=== PATIENT | male | born 1960 | race Caucasian/White ===

== ENCOUNTER 2025-09-05 09:11 | Outpatient (AMB) | payer MEDICARE, SELFPAY ==
--- NOTE | 2025-09-05 09:13 | MHC.PC.OV ---
Vital Signs 09/05/25 09:27 Height 5 ft 6.73 in Weight 179 lb BMI 28.3 BP 128/80 Blood Pressure Location Lt brachial Position Sitting Respiration 18 Pulse 85 Pulse Source Pulse Oximeter Temp 97.6 F Temp Source Temporal Artery Scan Pulse Oximetry (%) 97 Oxygen Delivery Method Room Air Intake Visit Reasons: New Patient/Establish Care Data Support Specialist Required: No Accompanied by: Spouse Allergies lisinopril Adverse Reaction (Intermediate, Verified 09/05/25 09:21) Cough metformin Adverse Reaction (Intermediate, Verified 09/05/25 09:21) Diarrhea Tobacco use date assessed: 09/05/25 Fall risk assessment: No Falls in past year Last assessed Fall Risk: 09/05/25 Dental Screening Dental Screen Date: 09/05/25 Did you have a dental visit in the last 12 months?: No Did you have a dental problem in the last 6 months where you did not have access to dental care?: Yes Was dental information given to patient?: Patient has dentist [facility] Social History Housing: House Patient Tobacco Use Status: Never used Tobacco e-Cigarette/Vaping Use: Never Used service: No Current occupational status: retired Questionnaire AUDIT C Alcohol Use Questionnaire (AUDIT-C) 1. How often do you have a drink containing alcohol?: 4 or more times a week 2. How many drinks containing alcohol do you have on a typical day when you are drinking?: 3 or 4 3. How often do you have six or more drinks on one occasion?: Never Total Score: 5 Physical exam (Primary Care) Vital Signs: Last Vital Signs Temp 97.6 F 09/05/25 09:27 Pulse 85 09/05/25 09:27 Resp 18 09/05/25 09:27 BP 128/80 09/05/25 09:27 Pulse Ox 97 09/05/25 09:27 Oxygen Delivery Method Room Air 09/05/25 09:27 BMI result Body Mass Index 28.3 Tobacco/Smoking Status: Tobacco use Status Tobacco use date assessed 09/05/25 09/05/25 09:17 Patient Tobacco Use Status Never used Tobacco 09/05/25 09:30 e-Cigarette/Vaping Use Never Used 09/05/25 09:30 Coding
[2025-09-05 09:27] VITALS: BP 128/80; PULSE 85; RESP 18; TEMP 36.4; O2SAT 97; BMI 28.3
--- NOTE | 2025-09-05 09:54 | A.OFFVIS_ITS ---
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 Laterality: unspecified laterality Mood disorder F39 Additional Codes GENNY-7 Assessment Billing - GENNY-7 Assessment Tool: GENNY-7 Assessment 09229 ([id number]) PHQ-9 - 22626 - PHQ-9 Billing: Yes ([id number]) Comment [id number]
== END 2025-09-05 10:21 | disposition home or self-care (01) ==
LOC: HO.HMCHD 09:12
PROVIDERS: PCP Physician Assistant Medical; Visit Provider Student in an Organized Health Care Education/Training Program
DX: Z00.00 Encounter for general adult medical examination without abnormal findings (principal); Z79.4 Long term (current) use of insulin; E11.65 Type 2 diabetes mellitus with hyperglycemia; I10 Essential (primary) hypertension; E78.2 Mixed hyperlipidemia; K22.719 Barrett's esophagus with dysplasia, unspecified; F10.10 Alcohol abuse, uncomplicated; M25.511 Pain in right shoulder; M25.512 Pain in left shoulder; G89.29 Other chronic pain; N50.819 Testicular pain, unspecified; F39 Unspecified mood [affective] disorder

== ENCOUNTER 2025-09-05 09:11 | Outpatient (REF) | payer MEDICARE, SELFPAY ==
--- NOTE | ~2025-09-05 | XR_ITS ---
Examination: 4 view bilateral shoulder x-rays TECHNIQUE: AP external rotation, Grashey, Y, and axillary view, bilateral shoulders INDICATION: Shoulder pain Prior: None FINDINGS: RIGHT SHOULDER: There are mild degenerative changes of the AC joint. There is elevation of the distal clavicle relative to acromion. There is also an ossification projecting inferiorly from clavicle at the coracoclavicular ligament footprint plane from remote avulsion. There is a subacromial spur. Glenohumeral joint is not dislocated. There are marginal osteophytes involving humeral head and glenoid. LEFT SHOULDER: There are mild degenerative changes of the AC joint. There is no AC joint separation. There is no glenohumeral dislocation. There are small marginal osteophytes involving the humeral head and glenoid. XR/XR Shoulder Biju min 2V IMPRESSION: Right shoulder: Chronic grade 3 AC joint separation Mild to moderate degenerative changes in the right glenohumeral joint. 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 Electronically signed by: José Miguel Lanza MD 09/05/2025 11:22 AM SHAYY
[2025-09-05 10:52] LABS: MANUAL DIFF FLAG NO
[2025-09-05 11:30] LABS: Hemoglobin A1C 150.9566 umol/L
[2025-09-05 11:35] LABS: Hematocrit 47.1 % (42.0-52.0); Hemoglobin 16.2 g/dl (14.0-18.0); Imm Gran Abs Auto 0.03 X10*3/uL (0.00-0.03); Imm Gran Pct Auto 0.3 % (0.0-0.4); Lymphocytes Absolute Auto 2.1 X10*3/uL (1.2-4.9); Mean Corpuscular HGB Conc 34.4 g/dl (31.0-36.0); Mean Corpuscular Hemoglobin 31.4 pg (27.0-33.0); Mean Corpuscular Volume 91.3 fL (80.0-98.0); NRBC Abs Auto 0.000 X10*3/uL (0.0-0.012); NRBC Pct Auto 0.0 /100WBC (0.0-0.2); Platelet Count 242 X10*3/uL (160-400); Red Blood Count 5.16 X10*6/uL (4.60-5.80); White Blood Count 8.7 X10*3/uL (4.8-10.8)
[2025-09-05 12:01] LABS: Alanine Aminotransferase 47 U/L (0-40); Albumin Level 4.7 g/dL (3.5-5.0); Alkaline Phosphatase 68 U/L (39-117); Anion Gap 13 (12-20); Aspartate Amino Transferase 35 U/L (5-37); Blood Urea Nitrogen 19 mg/dL (9-16); Calcium 9.5 mg/dL (8.4-10.2); Carbon Dioxide 29 mmol/L (22-29); Chloride 100 mmol/L (96-108); Cholesterol 170 mg/dL (<200); Estimated Glomerular Filt Rate > 60; HDL Cholesterol 47 mg/dL (>40); Potassium 4.8 mmol/L (3.3-5.1); Sodium 137 mmol/L (135-145); Total Protein 7.2 g/dL (6.5-8.0); Triglycerides 134 mg/dL (<150)
[2025-09-05 12:13] LABS: HBc Num1 0.10 S/CO (0.00-0.79); HBsAGNum1 0.47 S/CO (0.00-0.99); HIV Num 1 0.08 S/CO (0.00-0.99); Hepatitis A Antibody IgM 0.53 Index (0-0.79); Hepatitis B Surface Antigen Negative (Negative); ~HepC Num1 0.13 S/CO (0.00-0.79); ~Hepatitis A Antibody IgM Nonreactive (Nonreactive); ~Hepatitis B Surface Antibody REACTIVE (Nonreactive); ~Hepatitis C Antibody Nonreactive (Nonreactive)
[2025-09-05 12:14] LABS: Syphilis Screen Nonreactive (Nonreactive)
== END 2025-09-05 09:12 | disposition home or self-care (01) ==
LOC: HO.LAB 09:11
PROVIDERS: PCP Student in an Organized Health Care Education/Training Program; Visit Provider Student in an Organized Health Care Education/Training Program
DX: E11.65 Type 2 diabetes mellitus with hyperglycemia (principal); M25.511 Pain in right shoulder; M25.512 Pain in left shoulder; I10 Essential (primary) hypertension; E78.2 Mixed hyperlipidemia; K22.719 Barrett's esophagus with dysplasia, unspecified; G89.29 Other chronic pain; N50.819 Testicular pain, unspecified; F39 Unspecified mood [affective] disorder; Z13.29 Encounter for screening for other suspected endocrine disorder; Z79.4 Long term (current) use of insulin; Z79.899 Other long term (current) drug therapy
CPT/HCPCS: 36415; 73030; 80053; 80061; 82043; 82306; 82570; 83036; 84443; 85025; 86704; 86706; 86709; 86780; 86803; 87340; 87389

== ENCOUNTER → 2025-09-05 10:56 | Outpatient (BNV) | payer MEDICARE, SELFPAY | PROVIDERS: PCP Student in an Organized Health Care Education/Training Program; Visit Provider Radiology Diagnostic Radiology | DX: M19.011 Primary osteoarthritis, right shoulder (principal); M19.012 Primary osteoarthritis, left shoulder | CPT/HCPCS: 73030 ==